=== PATIENT | male | born 1960 | race Caucasian/White ===

== ENCOUNTER 2017-08-22 09:38 | Emergency (ER) | payer SELFPAY ==
[2017-08-22 09:51] VITALS: BP 136/51
--- NOTE | 2017-10-12 10:57 | UC ---
Lower Extremity/Ankle HPI - HPI Summary HPI Summary: Patient had been playing with grandchildren, when he felt pull on thigh muscles. now has much paina nd has tried ibuprofen, and Robaxin. Pin increases with flexion at knee. Has appointment with ortho on Sunday. Has pMHx of herniated discs adn is s/p AP. NO previous problems with right lower extrem. - History of Current Complaint Chief Complaint: UCLowerExtremity Stated Complaint: LEG INJURY Time Seen by Provider: 08/22/17 11:04 Hx Obtained From: Patient Onset/Duration: Sudden Onset Severity Initially: Moderate Severity Currently: Moderate Pain Intensity: 8 Pain Scale Used: 0-10 Numeric Aggravating Factor(s): Standing, Ambulation, Other - flexion at knee. Alleviating Factor(s): Rest Able to Bear Weight: Yes Related History: Other - Had been playing and wrestling with kids when pain began. - Risk Factors Gout Risk Factors: Negative DVT Risk Factors: Negative Septic Arthritis Risk Factor: Negative - Allergies/Home Medications Allergies/Adverse Reactions: Allergies Allergy/AdvReac Type Severity Reaction Status Date / Time No Known Allergies Allergy Verified 08/22/17 09:43 Home Medications: Home Medications Ibuprofen TAB* [Motrin TAB* 800 MG] 800 mg PO Q6H PRN 08/22/17 [History Confirmed 08/22/17] Methocarbamol [Robaxin-750 MG TAB] 750 mg BID 08/22/17 [History Confirmed ] PMH/Surg Hx/FS Hx/Imm Hx - Additional Past Medical History Additional PMH: Herniated disc. Previously Healthy: Yes - Surgical History Surgical History: Yes Surgery Procedure, Year, and Place: APPENDIX - Family History Known Family History: Positive: None - Social History Lives: With Family Alcohol Use: None Substance Use Type: None Smoking Status (MU): Never Smoked Tobacco - Immunization History Most Recent Influenza Vaccination: AUG 2017 Review of Systems Skin: Negative Eyes: Negative ENT: Negative Respiratory: Negative Cardiovascular: Negative Gastrointestinal: Negative Genitourinary: Negative Motor: Decreased ROM - of right knee due to pain. Neurovascular: Negative Musculoskeletal: Decreased ROM, Myalgia - to right thigh, Other: - Tenderness to right anterior tigh. No edema, no echcymoses. Psychological: Negative Is Patient Immunocompromised?: No All Other Systems Reviewed And Are Negative: Yes Physical Exam Triage Information Reviewed: Yes Appearance: Well-Appearing Vital Signs: Initial Vital Signs Temp 98.5 F 08/22/17 09:44 Pulse 65 08/22/17 09:44 Resp 16 08/22/17 09:44 BP 136/51 08/22/17 09:44 Pulse Ox 99 08/22/17 09:44 Vital Signs Reviewed: Yes Eye Exam: Normal ENT Exam: Normal Dental Exam: Normal Neck exam: Normal Respiratory Exam: Normal Cardiovascular Exam: Normal Abdominal Exam: Normal Bowel Sounds: Positive: Present Musculoskeletal Exam: Normal Musculoskeletal: Positive: Strength Intact, ROM Intact, No Edema, Other: - Tender to right, anterior thigh. no discoloration, Pain increased with flexion of knee. No deformity, no crepitus. no open wounds. Ankle and hip on right are normal. Neurological Exam: Normal Psychological Exam: Normal Skin Exam: Normal Lower Extremity Course/Dx - Differential Dx/Diagnosis Differential Diagnosis/HQI/PQRI: Arthritis, Strain - to muscle thigh. Provider Diagnoses: acute thigh muscle strain Discharge - Discharge Plan Condition: Stable Disposition: HOME Prescriptions: Hydrocodone-Acetaminophen [Hydrocodone Bitartrate/AC] 1 tab PO Q6HR PRN #8 tab MDD 4 tabs PRN Reason: Pain HYDROcodone/ACETAMIN 5-325 MG* [[place] 5-325 TAB*] 1 tab PO Q4H PRN #8 tab MDD 4 PRN Reason: Pain Patient Education Materials: Muscle Strain (ED) Print Language: ICELANDIC Referrals: No Primary Care Phys,NOPCP [Primary Care Provider] - Additional Instructions: activity as tolerated. Use warm compresses to the thigh. Take medications as directed, but do not use the Robaxin if using the Flexeril. ]Keep appointment with ortho
== END 2017-08-22 11:46 | disposition home or self-care (01) ==
LOC: UCCORT 09:38
DX: S76.912A Strain of unspecified muscles, fascia and tendons at thigh level, left thigh, initial encounter (principal); S76.911A Strain of unspecified muscles, fascia and tendons at thigh level, right thigh, initial encounter; X50.9XXA Other and unspecified overexertion or strenuous movements or postures, initial encounter; Y93.83 Activity, rough housing and horseplay; Y92.9 Unspecified place or not applicable
CPT/HCPCS: 99202; G0463